=== PATIENT | female | born 1970 | race Asian ===

== ENCOUNTER 2016-10-25 16:36 | Emergency (ER) | payer OTHER ==
[2016-10-25 16:48] LABS: INFLUENZA A NEG (NEG); INFLUENZA B NEG (NEG)
== END 2016-10-25 17:02 | disposition home or self-care (01) ==
LOC: CFTX 16:36
PROVIDERS: Physician Assistant Medical
DX: J06.9 Acute upper respiratory infection, unspecified (principal)
CPT/HCPCS: 87804; 99282